=== PATIENT | male | born 1965 | race Hispanic/Latino ===

== ENCOUNTER → 2019-08-16 | Day surgery (SDC) | payer OTHER ==
[2019-08-12 12:18] LABS: BASOPHILS # (AUTO) 0.1 (0.0-0.1); BASOPHILS % 0.8 % (0.0-1.0); EOSINOPHILS # (AUTO) 0.3 (0.0-0.4); EOSINOPHILS % 2.7 % (0.0-6.0); HEMATOCRIT 50.8 % (38.2-49.6); HEMOGLOBIN 16.3 g/dL (14.0-18.0); LYMPHOCYTES # (AUTO) 2.6 (1.0-3.2); MEAN CORPUSCULAR HEMOGLOBIN 29.9 pg (28-32); MEAN CORPUSCULAR HGB CONC 32.1 g/dL (31-35); MEAN CORPUSCULAR VOLUME 93.2 fL (81-99); MONOCYTES # (AUTO) 0.7 (0.2-0.8); MONOCYTES % 7.7 % (4.4-11.3); NEUTROPHILS # (AUTO) 5.5 (2.1-6.9); PLATELET COUNT 189 x10e3/uL (140-360); RED BLOOD COUNT 5.45 x10e6/uL (4.3-5.7); RED CELL DISTRIBUTION WIDTH 13.9 % (11.7-14.4)
[~2019-08-16] MED LIST: ELIQUIS5 MG PO; FENTANYL CITRATE/PF 100MCG/2 ML INJ ONE; HYOSCYAMINE 0.125 MG TAB ONE; METOPROLOL SUCC50 MG PO; MIDAZOLAM HCL 2 MG/2 ML VIAL ONE; PHENYLEPHRINE HCL 1% 10 MG/ML VIAL ONE; PROPOFOL IV EMULSION 10 MG/ML 20 ML VIAL ONE
[2019-08-16 15:20] VITALS: BP 126/76
--- NOTE | 2019-08-16 15:42 | Operative Report ---
DATE OF PROCEDURE: 08/16/2019 SURGEON: Erlin Carias MD PROCEDURE: Colonoscopy with polypectomy INDICATION FOR COLONOSCOPY: Colorectal cancer screening. MEDICATIONS: The patient was done under MAC, please see anesthesiologist's note. PROCEDURE IN DETAIL: With the patient in left lateral decubitus position, a flexible fiberoptic Olympus colonoscope was inserted into the rectum with ease and advanced all the way to the splenic flexure. Two polyps were noted just distal to the splenic flexure and those were removed per hot snare polypectomy. The scope was then advanced into the transverse colon. The patient developed atrial fibrillation with rapid ventricular response. After discussion with the anesthesiologist, it was decided to abort the procedure as the patient needs a better heart rate control. The scope was subsequently withdrawn. The patient tolerated the procedure well. IMPRESSION: 1. Colonoscopy with transverse colon. Procedure aborted due to the patient's atrial fibrillation with rapid ventricular response. 2. Descending colon polyps x2, removed per hot snare polypectomy. PLAN: Follow up histology. The patient will need a repeat colonoscopy after his atrial fibrillation is well controlled. Erlin Carias MD [facility] [place] /[id number] cc: Alex Balderas III, MD
== END | disposition home or self-care (01) ==
LOC: OR 10:45
PROVIDERS: ATTEND Internal Medicine Gastroenterology
DX: Z12.11 Encounter for screening for malignant neoplasm of colon (principal); D12.4 Benign neoplasm of descending colon; I48.20 Chronic atrial fibrillation, unspecified; G47.33 Obstructive sleep apnea (adult) (pediatric); I10 Essential (primary) hypertension; E66.01 Morbid (severe) obesity due to excess calories; Z01.810 Encounter for preprocedural cardiovascular examination; Z01.812 Encounter for preprocedural laboratory examination; Z11.59 Encounter for screening for other viral diseases; Z79.02 Long term (current) use of antithrombotics/antiplatelets; Z68.42 Body mass index [BMI] 45.0-49.9, adult; Z87.891 Personal history of nicotine dependence
CPT/HCPCS: 36415; 45385; 85025; 87635; 93005; J2250; J2370; J3010

== ENCOUNTER 2021-12-18 12:31 | Emergency (ER) | payer MEDICARE, OTHER ==
[~2021-12-18] VITALS: Ht 185.4 cm; Wt 154.2 kg
[~2021-12-18 12:31] MED LIST changes: -FENTANYL CITRATE/PF 100MCG/2 ML INJ ONE; -HYOSCYAMINE 0.125 MG TAB ONE; -MIDAZOLAM HCL 2 MG/2 ML VIAL ONE; -PHENYLEPHRINE HCL 1% 10 MG/ML VIAL ONE; -PROPOFOL IV EMULSION 10 MG/ML 20 ML VIAL ONE
[2021-12-18] MEDS ORDERED: NAPROSYN500 MG PO (14:23)
== END 2021-12-18 14:41 | disposition home or self-care (01) ==
LOC: FSED 12:35
DX: M79.652 Pain in left thigh (principal); M76.892 Other specified enthesopathies of left lower limb, excluding foot; I10 Essential (primary) hypertension; E11.9 Type 2 diabetes mellitus without complications; I48.91 Unspecified atrial fibrillation; E66.01 Morbid (severe) obesity due to excess calories
CPT/HCPCS: 99282

== ENCOUNTER 2023-10-27 08:43 | Emergency (ER) | payer MEDICARE ==
[~2023-10-27] VITALS: Ht 185.4 cm; Wt 154.7 kg
[~2023-10-27 08:43] MED LIST changes: +AZITHROMYCIN250 MG PO; +CEFDINIR300 MG PO; +LOSARTAN POTASS25 MG PO; +NAPROSYN500 MG PO; +NASACORT16.9 ML; +PAXLOVID 150-11 EAC1 PO; +RYBELSUS3 MG PO; +TESTOSTERO200 MG/1 M INJ; +VENTOLIN HFA18 GM INH; +VIAGRA50 MG PO
[2023-10-27 08:50] VITALS: PULSE 80; RESP 22; TEMP 98; O2SAT 95
[2023-10-27] MEDS ORDERED: AMOX TR-K CLV1 EAC2 PO (09:56)
[2023-10-30] MEDS ORDERED: TESTOSTERO200 MG/1 M IM (09:28)
[2023-10-30] MEDS ORDERED: VIAGRA100 MG PO (09:28)
[2023-10-30] MEDS ORDERED: RYBELSUS7 MG PO (09:28)
[2023-10-31] MEDS ORDERED: RYBELSUS7 MG (13:22)
[2023-11-02] MEDS ORDERED: DOXYCYCLINE HY100 MG PO (11:09)
[2023-11-02] MEDS ORDERED: MUCINEX600 MG PO (11:09)
[2023-11-02] MEDS ORDERED: BENZONATATE200 MG PO (11:10)
[2023-11-02] MEDS ORDERED: CEFUROXIME250 MG PO (11:11)
[2023-11-02] MEDS ORDERED: TRELEGY ELLIPT1 EACH NEB (11:12)
[2023-11-02] MEDS ORDERED: MEDROL DOSE PACK (11:13)
== END 2023-10-27 10:08 | disposition home or self-care (01) ==
LOC: FSED 08:48
DX: J01.90 Acute sinusitis, unspecified (principal); R05.9 Cough, unspecified; R09.81 Nasal congestion; I10 Essential (primary) hypertension; I48.91 Unspecified atrial fibrillation; M54.9 Dorsalgia, unspecified; E66.01 Morbid (severe) obesity due to excess calories; Z68.42 Body mass index [BMI] 45.0-49.9, adult; Z20.822 Contact with and (suspected) exposure to COVID-19
CPT/HCPCS: 0223U; 87400; 99283

== ENCOUNTER → 2023-10-30 | Day surgery (SDC) | payer MEDICARE ==
[2023-10-24 15:28] LABS: BASOPHILS # (AUTO) 0.1 (0.0-0.1); BASOPHILS % 0.7 % (0.0-1.0); EOSINOPHILS # (AUTO) 0.3 (0.0-0.4); EOSINOPHILS % 2.3 % (0.0-6.0); HEMATOCRIT 57.8 % (38.2-49.6); HEMOGLOBIN 18.7 g/dL (14.0-18.0); LYMPHOCYTES # (AUTO) 2.8 (1.0-3.2); LYMPHOCYTES % 25.7 % (18.0-39.1); MEAN CORPUSCULAR HEMOGLOBIN 30.3 pg (28-32); MEAN CORPUSCULAR HGB CONC 32.4 g/dL (31-35); MEAN CORPUSCULAR VOLUME 93.5 fL (81-99); MONOCYTES % 8.8 % (4.4-11.3); NEUTROPHILS # (AUTO) 6.6 (2.1-6.9); NEUTROPHILS % 61.3 % (38.7-80.0); PLATELET COUNT 184 x10e3/uL (140-360); RED BLOOD COUNT 6.18 x10e6/uL (4.3-5.7); RED CELL DISTRIBUTION WIDTH 18.9 % (11.7-14.4); WHITE BLOOD COUNT 10.76 x10e3/uL (4.8-10.8)
[~2023-10-30] MED LIST changes: +AMOX TR-K CLV1 EAC2 PO; +BENZONATATE200 MG PO; +CEFUROXIME250 MG PO; +DOXYCYCLINE HY100 MG PO; +LIDOCAINE HCL 2% LOCAL INJ 5 ML SDV VIAL INJ ONE; +MEDROL DOSE PACK; +MIDAZOLAM HCL 2 MG/2 ML VIAL ONE; +MUCINEX600 MG PO; +PROPOFOL IV EMULSION 10 MG/ML 20 ML VIAL ONE; +RYBELSUS7 MG; +RYBELSUS7 MG PO; +TESTOSTERO200 MG/1 M IM; +TRELEGY ELLIPT1 EACH NEB; +VIAGRA100 MG PO
[2023-10-30 10:54] VITALS: TEMP 97.6
[2023-10-30 11:20] VITALS: BP 129/70; PULSE 88; RESP 16; O2SAT 96
== END | disposition home or self-care (01) ==
LOC: OR 08:30
PROVIDERS: ATTEND Internal Medicine Gastroenterology
DX: Z12.11 Encounter for screening for malignant neoplasm of colon (principal); D12.2 Benign neoplasm of ascending colon; D12.3 Benign neoplasm of transverse colon; D12.8 Benign neoplasm of rectum; K57.30 Diverticulosis of large intestine without perforation or abscess without bleeding; K64.8 Other hemorrhoids; E11.9 Type 2 diabetes mellitus without complications; E66.01 Morbid (severe) obesity due to excess calories; Z01.810 Encounter for preprocedural cardiovascular examination; Z01.812 Encounter for preprocedural laboratory examination; Z79.84 Long term (current) use of oral hypoglycemic drugs; Z79.899 Other long term (current) drug therapy; Z68.42 Body mass index [BMI] 45.0-49.9, adult
CPT/HCPCS: 36415; 45385; 85025; 88305; 93005; J2001; J2250; J2704

== ENCOUNTER 2024-02-11 14:09 | Emergency (ER) | payer MEDICARE ==
[~2024-02-11] VITALS: Ht 185.4 cm; Wt 153.8 kg
[~2024-02-11 14:09] MED LIST changes: -LIDOCAINE HCL 2% LOCAL INJ 5 ML SDV VIAL INJ ONE; -MIDAZOLAM HCL 2 MG/2 ML VIAL ONE; -PROPOFOL IV EMULSION 10 MG/ML 20 ML VIAL ONE
[2024-02-11 14:32] VITALS: TEMP 97.6
[2024-02-11] MEDS: Morphine 4mg INJECTION 4 MG/ML INJ IV ONE (14:40)
[2024-02-11] MEDS: ONDANSETRON HCL INJ 2MG/ML 2ML 2 MG/ML VIAL IV STA (14:40)
[2024-02-11] MEDS: SODIUM CHLORIDE 0.9% 1000ML 1,000 ML IV ONE (15:03)
[2024-02-11 16:21] VITALS: PULSE 69; RESP 18; O2SAT 95
== END 2024-02-11 16:20 | disposition home or self-care (01) ==
LOC: FSED 14:22
DX: R10.30 Lower abdominal pain, unspecified (principal); N28.9 Disorder of kidney and ureter, unspecified; E86.0 Dehydration; R31.9 Hematuria, unspecified; K76.0 Fatty (change of) liver, not elsewhere classified; I10 Essential (primary) hypertension; E11.9 Type 2 diabetes mellitus without complications; I48.91 Unspecified atrial fibrillation; M54.9 Dorsalgia, unspecified; G89.29 Other chronic pain; E66.01 Morbid (severe) obesity due to excess calories
CPT/HCPCS: 74176; 80053; 85025; 99283; J7030

== ENCOUNTER 2024-11-26 11:01 | Emergency (ER) | payer MEDICARE ==
[~2024-11-26] VITALS: Ht 185.4 cm; Wt 156.2 kg
[2024-11-26] MEDS: KETOROLAC TROMETHAMINE 30 MG/ML VIAL IM ONE (11:48)
[2024-11-26] MEDS: ACETAMINOPHEN 325 MG TAB PO ONE (11:49)
[2024-11-26] MEDS: CYCLOBENZAPRINE HCL 10 MG TAB PO ONE (11:49)
[2024-11-26] MEDS ORDERED: METHOCARBAMOL750 MG PO (13:31)
[2024-11-26] MEDS ORDERED: KETOROLAC TROME10 MG PO (13:31)
[2024-11-26 13:35] VITALS: PULSE 66; RESP 20; TEMP 98.3; O2SAT 95
== END 2024-11-26 13:40 | disposition home or self-care (01) ==
LOC: FSED 11:09
DX: M62.838 Other muscle spasm (principal); M54.50 Low back pain, unspecified; M79.632 Pain in left forearm; I10 Essential (primary) hypertension; E11.9 Type 2 diabetes mellitus without complications; I48.91 Unspecified atrial fibrillation; M54.9 Dorsalgia, unspecified; G89.29 Other chronic pain; E66.9 Obesity, unspecified; Z87.442 Personal history of urinary calculi
CPT/HCPCS: 72100; 73090; 81003; 99284; J1885